=== PATIENT | female | born 1960 | race Caucasian/White ===

== ENCOUNTER → 2020-06-20 | Outpatient (CLI) | payer MEDICARE ==
[2020-06-20 12:23] LABS: HEMOGLOBIN 15.6 gm/dl (12.3-15.3); RED BLOOD COUNT 5.27 M/UL (4.00-5.10); WHITE BLOOD COUNT 12.6 K/UL (4.5-11.0)
[2020-06-20 12:45] LABS: BUN/CREATININE RATIO 13 (0-10)
== END ==
LOC: LAB 11:39
PROVIDERS: Internal Medicine
DX: E05.20 Thyrotoxicosis with toxic multinodular goiter without thyrotoxic crisis or storm (principal); E21.0 Primary hyperparathyroidism
CPT/HCPCS: 36415; 80048; 80069; 80076; 83520; 83970; 84100; 84439; 84443; 84481; 85025

== ENCOUNTER → 2020-12-08 | Outpatient (CLI) | payer MEDICARE | LOC: LAB 08:09 | PROVIDERS: Internal Medicine | DX: E03.9 Hypothyroidism, unspecified (principal) | CPT/HCPCS: 36415; 84439; 84443; 86376; 86800 ==

== ENCOUNTER → 2021-03-18 | Outpatient (CLI) | payer MEDICARE ==
[2021-03-18 09:54] LABS: BUN/CREATININE RATIO 14 (0-10)
== END ==
LOC: LAB 08:35
PROVIDERS: Internal Medicine
DX: E21.0 Primary hyperparathyroidism (principal)
CPT/HCPCS: 36415; 80069; 83970

== ENCOUNTER → 2021-08-17 | Outpatient (CLI) | payer OTHER ==
[2021-08-17 13:12] LABS: HEMOGLOBIN 15.1 gm/dl (12.3-15.3); WHITE BLOOD COUNT 13.7 K/UL (4.5-11.0)
[2021-08-17 15:16] LABS: BUN/CREATININE RATIO 14 (0-10)
[2021-08-18 07:11] LABS: VITAMIN D, 25-HYDROXY 39.7 ng/mL (30.0-100.0)
== END ==
LOC: LAB 12:25
PROVIDERS: Physician Assistant
DX: E78.5 Hyperlipidemia, unspecified (principal); E05.90 Thyrotoxicosis, unspecified without thyrotoxic crisis or storm; E55.9 Vitamin D deficiency, unspecified; D75.1 Secondary polycythemia; E53.8 Deficiency of other specified B group vitamins; E21.3 Hyperparathyroidism, unspecified; E03.9 Hypothyroidism, unspecified
CPT/HCPCS: 36415; 80053; 80061; 80178; 82607; 83970; 84439; 84443; 85025